=== PATIENT | female | born 1975 | race Caucasian/White ===

== ENCOUNTER 2016-09-20 11:22 | Day surgery (SDC) | payer OTHER ==
[2016-09-20] VITALS (11 sets, daily range): BP systolic 120–212; BP diastolic 63–77; PULSE 65–91; RESP 12–16; O2SAT 95–99
[~2016-09-20] VITALS: Ht 157.5 cm; Wt 91.3 kg
[~2016-09-20 11:22] MED LIST: FEXO-15 PO; HYDR12.5 PO; IBUP100T7 PO; KEN25CR EXT; OMEP40CA36 PO
[2016-09-20] MEDS ORDERED: Propofol 10,000 mCg/mL 20 mL Inj ONE (11:23)
[2016-09-20] MEDS ORDERED: Neostigmine 1 mg/mL 10 mL Inj ONE (11:23)
[2016-09-20] MEDS ORDERED: fentaNYL-PF 50 mCg/mL 2 mL Inj ONE (11:23)
[2016-09-20] MEDS ORDERED: Dexamethasone 4 mg/mL Inj ONE (11:23)
[2016-09-20] MEDS ORDERED: Ondansetron 2 mg/mL 2 mL Inj ONE (11:23)
[2016-09-20] MEDS ORDERED: Glycopyrrolate 0.2 MG/ML 1mL Inj ONE (11:23)
[2016-09-20] MEDS ORDERED: Succinylcholine Chloride 20 mg/mL 5 mL Inj ONE (11:23)
[2016-09-20] MEDS: Lactated Ringer's 1,000 ML IV SCH ×2 (11:29→14:10)
--- NOTE | 2016-09-20 13:49 | PCM.HPANE ---
Patient Data Surgeon Admitting Provider: Attending Provider:Katerine Montelongo MD Primary Care Physician:Leta Dominguez ARNP Other Provider:Thu Bain Anesthesia Reason for Visit Biliary Colic Ht/WT & BMI Height (Feet): 5 Height (Inches): 2 Weight (Kilograms): 90.53 Body Mass Index 36.00 Allergies Coded Allergies: codeine (Verified Allergy, Intermediate, VOMITTING, 05/30/16) MUSHROOM (Verified Allergy, Unknown, 09/20/16) shellfish derived (Verified Allergy, Unknown, 09/20/16) Past Anesthesia History Anesthesia History: Denies:: Abnormal Airway, Anesthesia Reactions (had to be restrained when awoke from anes last time), Difficult Intubation Diabetes History Hx Diabetes?: No MRSA MRSA: No Medications Hypertension Medication: No Home Meds Incl Beta Maria Luz: No Reported Medications Triamcinolone Acet (Triamcinolone Acetonide Cream)1 Applic/0.25 Gm Cr1 Applic EXT BID #60 GM Ref 0 09/15/16 Ibuprofen 100 Mg [id number] Mg PO Q4H PRN For Pain Ref 0 09/15/16 Fexofenadine (Sharla Allergy)60 Mg [id number] Mg PO BID 09/15/16 Omeprazole 40 Mg Capsule.dr40 Mg PO DAILY Ref 0 09/15/16 Hydrochlorothiazide 12.5 Mg Ylidzhm11.5 Mg PO DAILY 30 Days Ref 0 09/15/16 Last Time Dose Received No meds today but the omeprazole and pre-op pre-meds History History of ENT Problems?: No HEENT History: Positive for:: Sinus Problem (seasonal allergies- sharla daily ) TMJ (grinds teeth, no nightguard) Denies:: Abnormal Airway Cataracts Difficult Intubation Dysphagia Glaucoma Hearing Problem Denture Type: None Teeth Condition: Tooth Decay Hx of Heart Problems?: No Cardiovascular History: Denies:: AICD Abdominal Aortic Aneurism Atrial Fibrillation Cardiac Surgery Chest Pain Edema Heart Murmur Hypertension Irregular Heartbeat Pacemaker Peripheral Vascular Rheumatic Fever Thrombophlebitis Valvular Heart Disease Other Cardiac History: Patient has neve had an US of heart. No signs/sx's of enlarged heart. Greater than 4 mets Hx of Respiratory Problem?: No Respiratory History: Denies:: Asthma COPD Emphysema Oxygen Administration Pneumonia Tuberculosis Use of C-PAP Machine Hx Neurologic Problems?: Yes Neurological History: Positive for:: Headaches (chronic, does not medicate for h/a- rest, cloth) Denies:: Alzheimer's Disease CVA Dementia Dizziness Multiple Sclerosis Parkinson's Disease Seizures TIA Hx of GI Problems?: Yes Gastrointestinal History: Positive for:: Gall Bladder Disease (current admission problem) Gastroesphageal Reflux (well controlled) Heartburn Denies:: Gastrointestinal Bleeding Hepatitis Hiatal Hernia Liver Disease Rectal Bleeding Hx of Problems?: No Genitourinary History: Denies:: Kidney Stones Urinary Tract Infection Female Hx: Denies:: Currently Problems with Breasts? Skin History: Positive for:: History Skin Disorders? (hx of lichen sclerosis) Denies:: Pressure Ulcers Hx Musculoskeletal Problems?: No Musculoskeletal History: Denies:: Back Injury Fibromyalgia Joint Replacement Musculoskeletal Trauma Myasthenia Gravis Osteoarthritis Systemic Lupus Hx of Psycho/Social Problems?: Yes Psycho Social History: Positive for:: Anxiety (PTSD) Hx Surgeries?: Yes (laparoscopy, tonsil) Hx Any Other Health Problems?: Yes Other History: Denies:: Cancer Thyroid Disease History Blood Transfusions: Positive for:: Accept Blood Products? Denies:: Blood Transfusions Hx Diabetes: No Hx Alcohol Use: YesAlcoholic Drinks Per Day: one drink weeklyHx Substance Use : No Stop/Bang S-Snoring: Do You Snore Loudly: Yes T-Tired: feel tired, fatigued: No O-Obsered: Observed not breath: No P-Blood Pressure: treated: Yes B- Body Mass Index > 35 kg/m2: Yes A- Age over 50: No N- Neck Large Circumference: No G- Gender Male: No NAVYA Total Score: 3 Risk Assessment Category Category 1A: Patient has history of documented sleep apnea, and HAS NOT received any narcotic, sedative or anesthesia administration during this stay. Category 1B: Patient has history of documented sleep apnea, and HAS received any narcotic , sedative or anesthesia administration during this stay Category 2: Patient has SUSPECTED Obstructive Sleep Apnea, and HAS received any narcotic , sedative or anesthesia administration during this stay. Category 3: Patient has SUSPECTED Obstructive Sleep Apnea and HAS NOT received narcotic, sedative or anesthesia administration during this stay. Category 4: Outpatient in Procedural Areas with known sleep apnea or who screen positive for High Risk via the STOP/BANG questionnaire. Exam Exam General Appearance: Alert, Oriented X3 HEENT/AIRWAY: MP 2, Neck Movement (FROM) Lungs: Clear to Auscultation, Clear to Percussion Heart: Exam Unremarkable, Regular Rate/Rhythm Plan Impression Patient chart reviewed, patient interviewed and anesthestic plan with risks, benefits, and alternatives discussed, and informed consent obtained. ASA Physical Status: ASA2 Mod Systemic Disease Anesthetic Plan: GA Bene/Risks/Altern/Consents: Yes HP Complete Prior to Induction: Yes James Ordonez MD Sep 20, 2016 10:33
[2016-09-20] MEDS ORDERED: Lactated Ringer's 500 ML IV PRN (14:32)
[2016-09-20] MEDS ORDERED: Lactated Ringer's 1,000 ML IV SCH (14:32)
[2016-09-20] MEDS ORDERED: Labetalol 5 mg/mL 4 mL Inj IV PRN (14:35)
[2016-09-20] MEDS ORDERED: EPHEDrine Sulfate 50 mg/mL Inj IVPUSH PRN (14:35)
[2016-09-20] MEDS ORDERED: MetoCLOpramide 5 mg/mL 2 mL Inj IVPUSH PRN (14:35)
[2016-09-20] MEDS ORDERED: Atropine 0.4 mg/mL Inj IVPUSH PRN (14:35)
[2016-09-20] MEDS ORDERED: Ondansetron 2 mg/mL 2 mL Inj IVPUSH PRN (14:35)
[2016-09-20] MEDS ORDERED: Bupivacaine 0.5%/EPI 50 mL Inj INFILTRATE ONE (14:35)
[2016-09-20] MEDS ORDERED: HYDROmorphone 1 mg/mL Inj IVPUSH PRN (14:35)
[2016-09-20] MEDS ORDERED: Phenylephrine 10,000 mCg/mL Inj IVPUSH PRN (14:35)
--- NOTE | 2016-09-20 15:37 | PCM.ANEP1 ---
Post Anesthesia Phase 1 PACU Phase 1 Assessment Vital Signs Vital Signs Date Time Temp Pulse Resp B/P Pulse Ox O2 Delivery O2 Flow Rate FiO2 09/20/16 11:40 36.2 72 13 212/69 99 Room Air Anesthetic Administered: GA Level of Alertness: Awake, talking COOK's with Equal Strength: Yes Pain: No Nausea or Vomiting: No Cardiovascular Function and Hy: No Oxygen Delivery: Simple Mask Lungs: Clear to Auscultation, Clear to Percussion Complications: No Follow up Care: No Comments See anesth record for PACU VS. PACU VSS James Ordonez MD Sep 20, 2016 15:37
[2016-09-20] MEDS ORDERED: oxyCODONE-Acetamin 5-325 mg Tablet PO PRN (15:45)
[2016-09-20] MEDS: fentaNYL-PF 50 mCg/mL 2 mL Inj IVPUSH PRN ×2 (15:50→16:05)
--- NOTE | 2016-09-20 15:50 | PCM.SURGOP ---
Surgical Operative Report Date of Service: Sep 20, 2016 Pre Operative Diagnosis Biliary colic Post Operative Diagnosis Biliary colic Procedure: Laparoscopic cholecystectomy with intraoperative cholangiogram, with interpretation Surgeon and Reverberatory Furnace Operator: Surgeon: Katerine Montelongo M.D. Assistants: Wojciech Arreola PA-C; Jamal Malik MS3 The presence of an medical staff assistant was necessary for dissection and retraction. Indication for Procedure This is a 40-year-old woman with repetitive severe episodes of right upper quadrant pain associated with emesis. Abdominal ultrasound revealed cholelithiasis without gallbladder wall thickening or pericholecystic fluid. She was diagnosed with biliary colic and consented for laparoscopic cholecystectomy. Findings: 1. Moderately inflamed gallbladder with overlying adhesions. 2. Normal intraoperative cholangiogram with a long cystic duct, no filling defects, and adequate visualization of the right and left hepatic ducts, common hepatic duct, common bile duct, with good filling of the duodenum. The distal pancreatic duct was visualized as well. Procedure Details The patient was brought to the operating room and placed in supine position. General endotracheal anesthesia was smoothly induced. Antibiotics were infused. A warming blanket and SCDs were placed. A foot board was placed. The operative field was prepped and draped in sterile fashion. A pause was performed to confirm the correct patient, procedure, site, and side. A transverse 10 mm incision was made just below the umbilicus. The abdomen was entered using an Optiview trocar. Three additional 5 mm ports were placed in the epigastrium and right upper quadrant. The gallbladder was identified and lifted cephalad. There were moderate adhesions due to cholecystitis, and substantial pericholecystic edema. The omental adhesions were gently dissected off of the gallbladder. Dissection then proceeded to identify the cystic duct, cystic artery, and to expose the lower one-third of the cystic plate. A small hole was made in the gallbladder during the dissection and a small amount of bile leaked out, but no stones. It was removed with suction and copious irrigation. Once there were two and only two structures entering the gallbladder, a clip was placed on the gallbladder side of the cystic duct. A ductotomy was made and a cholangiocatheter was inserted. A cholangiogram was performed and the cystic duct was long and patent with normal filling of the common hepatic duct, common bile duct, and right and left hepatic ducts, as noted above. The cholangiocatheter was then removed, two clips were placed on the cystic duct and it was divided. The cystic artery was injured slightly and bled approximately 5 mL; it was controlled by clips x3. The gallbladder was then removed from its bed on the liver with electrocautery. Prior to completely removing the gallbladder, a final look was taken at the cystic artery and cystic duct, and there was no bleeding or bile leak. The gallbladder was then fully removed from the liver and placed in an EndoCatch bag and removed. The three 5 mm ports were removed under direct vision, the 10 mm mid abdominal port was removed. 0.5% Marcaine with epinephrine was infused at all port sites for postoperative analgesia. The skin was closed with subcuticular 4-0 Monocryl. Sterile dressings were placed. Sponge, instrument, and needle counts were correct at the end of the procedure. The patient was awakened from general anesthesia and taken to the postoperative care unit in good condition. Complications There were no periprocedural complications identified. Surgical Specimen Removed: Yes Specimen sent to Pathology: Yes Surgical Specimen description: Gallbladder and gallstones Anesthetic Plan: GA Grafts, Implants: None Output, Estimated Blood Loss: 5 (ml) Blood Administration during novoa: No Katerine Montelongo MD Sep 20, 2016 15:49
--- NOTE | 2016-09-20 16:26 | DRSVH ---
PROCEDURE: X-RAY OPERATIVE CHOLANGIOGRAM ([id number]) INDICATIONS: 40-year-old female undergoing laparoscopic cholecystectomy. COMPARISON: [facility], US, US ABDOMEN, 08/23/2016, 19:56. FINDINGS: Biliary ducts: The surgeon injected contrast into the biliary ducts after cannulation of the cystic duct stump. Visualized intra- and extrahepatic bile ducts are normal in caliber, without strictures. No intraluminal filling defects to suggest retained ductal stones or sludge. No evidence for iatro genic ductal injury. There is small contrast reflux into the main pancreatic duct. Duodenum: Contrast flows promptly through the sphincter of Oddi into the duodenum, which appears nor mal in caliber. IMPRESSION: Normal intraoperative cholangiogram. Dictated by: Man Jones M.D. on 09/20/2016 at 16:24 Approved by: Man Jones M.D. on 09/20/2016 at 16:25
--- NOTE | 2016-09-21 16:35 | PATH ---
SURGICAL PATHOLOGY Attending Physician:Katerine Montelongo MD CASE STATUS: Signed Out PATIENT NAME: SAWYER CAMACHO PID: [id number] : 1975 DATE COLLECTED:09/20/2016 23:42 SPECIMEN: Gallbladder CLINICAL HISTORY: 1). GALLBLADDER FINAL DIAGNOSIS: Gallbladder, Laparoscopic Cholecystectomy: Gallbladder with cholesterolosis and cholelithiasis. ICD10: K80.7 GROSS DESCRIPTION: The specimen is received in one formalin filled container labeled with the patient's name, sublabeled "gallbladder" and consists of a slightly opened 8.0 x 3.5 x 3.5 CM gallbladder. The serosa is smooth. The wall is 0.2-0.3 CM in thickness. The mucosa is a dark green in color. The lumen contains a dark green mucoid material and approximately 30-40 yellow banegas cobblestone calculi which range in size from less than 0.1-0.5 CM in greatest dimension. 5 inbound sales representative sections are submitted in one cassette. 09/21/2016 [facility] ICD-9 CODES: CPT CODES: 1: 03666 Electronically Signed Out Olga Lidia Hutson MD [facility] Pathology [facility] [address], [place] [address] Technical component performed at [facility], [address] [place] [address] Ave[address], [place], [address]
== END 2016-09-20 23:59 | disposition home or self-care (01) ==
LOC: SAS 11:22
PROVIDERS: ATTEND Surgery
PROC: BF001ZZ Plain Radiography of Bile Ducts using Low Osmolar Contrast (ICD-10-PCS; 2016-09-20)
PROC: 0FT44ZZ Resection of Gallbladder, Percutaneous Endoscopic Approach (ICD-10-PCS; principal; 2016-09-20 14:45)
DX: K80.20 Calculus of gallbladder without cholecystitis without obstruction (principal); K21.9 Gastro-esophageal reflux disease without esophagitis
CPT/HCPCS: 47563; 74300; J0330; J1100; J2405; J2710; J2765; J3010; J7120; Q9967